=== PATIENT | male | born 1965 | race Caucasian/White ===

== ENCOUNTER 2019-03-21 18:05 | Inpatient (IN) | payer OTHER ==
--- NOTE | 2019-03-21 20:41 | PDOC ---
*Physical Exam - Vital Signs Last Vital Signs Temp Pulse Resp BP Pulse Ox 98.3 F 89 17 172/93 H 97 03/21/19 18:07 03/21/19 18:07 03/21/19 18:07 03/21/19 18:07 03/21/19 18:07 ED Treatment Course - LABORATORY CBC & Chemistry Diagram: 03/21/19 21:23 03/21/19 21:23 Medical Decision Making - Medical Decision Making 03/21/19 20:40 Patient seen by the advanced practice provider under my direct supervision. Ancillary testing reviewed as necessary. I agree with plan as outlined by the advanced practice provider. *DC/Admit/Observation/Transfer Diagnosis at time of Disposition: Wound of foot - Referrals Referrals: Tk Hoang MD [Primary Care Provider] - - Patient Instructions - Post Discharge Activity
[2019-03-21] MEDS ORDERED: SODIUM CHLORIDE 1,000 ML IV STA (21:13)
[2019-03-21] MEDS ORDERED: VANCOMYCIN 1 GM in D5W (PRE-DOCKED) 1,000 MG/250 ML IVPB ONE (21:13)
[2019-03-21] MEDS ORDERED: PIPERACILLIN/TAZOB 3.375 GM 3.375 GM in DEXTROSE 5%-WATER - 50 ML IVPB ONE (21:13)
--- NOTE | 2019-03-21 21:13 | PDOC ---
History of Present Illness - General Chief Complaint: Wound Stated Complaint: SEND BY DOCTOR Time Seen by Provider: 03/21/19 20:37 Past History - Travel Traveled outside of the country in the last 30 days: No Close contact w/someone who was outside of country & ill: No - Past Medical History Allergies/Adverse Reactions: Allergies Allergy/AdvReac Type Severity Reaction Status Date / Time No Known Allergies Allergy Verified 03/21/19 18:09 Home Medications: Ambulatory Orders Amlodipine Besylate/Valsartan [Amlodipine-Valsartan 5-160 mg] 1 each PO DAILY Bupropion HCl [Bupropion Xl] 150 mg PO DAILY 03/21/19 Empagliflozin [Jardiance] 10 mg PO DAILY 03/21/19 Insulin Degludec [Tresiba] 100 unit SQ DAILY 03/21/19 Propranolol HCl [Propranolol HCl ER] 60 mg PO DAILY 03/21/19 Sitagliptin Phos/Metformin HCl [Janumet 50-1,000 mg Tablet] 1 each PO BID Topiramate [Topiramate ER] 150 mg PO DAILY 03/21/19 Zolmitriptan [Zomig Zmt] 5 mg PO PRN 03/21/19 COPD: No Diabetes: Yes HTN: Yes - Suicide/Smoking/Psychosocial Hx Smoking History: Never smoked Information on smoking cessation initiated: No Hx Alcohol Use: No Drug/Substance Use Hx: No Review of Systems - Review of Systems Able to Perform ROS?: Yes Comments:: 03/21/19 22:28 CONSTITUTIONAL: Absent: fever, chills, diaphoresis, generalized weakness, malaise, loss of appetite HEENT: Absent: rhinorrhea, nasal congestion, throat pain, throat swelling, difficulty swallowing, mouth swelling, ear pain, eye pain, visual Changes CARDIOVASCULAR: Absent: chest pain, loss of consciousness, palpitations, irregular heart rate, peripheral edema RESPIRATORY: Absent: cough, shortness of breath, dyspnea with exertion, orthopnea, wheezing, stridor, hemoptysis GASTROINTESTINAL: Absent: abdominal pain, abdominal distension, nausea, vomiting, diarrhea, constipation, melena, hematochezia GENITOURINARY: Absent: dysuria, frequency, urgency, hesitancy, hematuria, flank pain, genital pain MUSCULOSKELETAL: Absent: myalgia, arthralgia, joint swelling SKIN: Present: "toe infection" Absent: itching, pallor HEMATOLOGIC/IMMUNOLOGIC: Absent: easy bleeding, easy bruising, lymphadenopathy, frequent infections ENDOCRINE: Absent: unexplained weight gain, unexplained weight loss, heat intolerance, cold intolerance NEUROLOGIC: Absent: headache, focal weakness or paresthesias, dizziness, unsteady gait, seizure, mental status changes, bladder or bowel incontinence PSYCHIATRIC: Absent: anxiety, depression, suicidal or homicidal ideation, hallucinations. Is the patient limited Hungarian proficient: No *Physical Exam - Vital Signs Last Vital Signs Temp Pulse Resp BP Pulse Ox 98.3 F 89 17 172/93 H 97 03/21/19 18:07 03/21/19 18:07 03/21/19 18:07 03/21/19 18:07 03/21/19 18:07 - Physical Exam Comments: 03/21/19 22:32 GENERAL: Well developed, well nourished. Awake and alert. No acute distress. HEENT: Normocephalic, atraumatic. PERRLA, EOMI. No conjunctival pallor. Sclera are non- icteric. Moist mucous membranes. Oropharynx is clear. NECK: Supple. Full ROM. No JVD. Carotid pulses 2+ and symmetric, without bruits. No thyromegaly. No lymphadenopathy. CARDIOVASCULAR: Regular rate and rhythm. No murmurs, rubs, or gallops. Distal pulses are 2+ and symmetric. PULMONARY: No evidence of respiratory distress. Lungs clear to auscultation bilaterally. No wheezing, rales or rhonchi. ABDOMINAL: Soft. Non-tender. Non-distended. No rebound or guarding. No organomegaly. Normoactive bowel sounds. MUSCULOSKELETAL Normal range of motion at all joints. No bony deformities or tenderness. No CVA tenderness. EXTREMITIES: No cyanosis. No clubbing. No edema. No calf tenderness. SKIN: B/L stage II pressure ulcers to the top of the second toes approximately 0.5cm in size with associated non-circumferential cellulitis. Warm and dry. Normal capillary refill. No jaundice. NEUROLOGICAL: Alert, awake, appropriate. Cranial nerves 2-12 intact. No deficits to light touch and temperature in face, upper extremities and lower extremities. No motor deficits in the in face, upper extremities and lower extremities. Normoreflexic in the upper and lower extremities. Normal speech. Toes are down- going bilaterally. Gait is normal without ataxia. PSYCHIATRIC: Cooperative. Good eye contact. Appropriate mood and affect. ED Treatment Course - LABORATORY CBC & Chemistry Diagram: 03/21/19 21:23 03/21/19 21:23 Medical Decision Making - Medical Decision Making 03/21/19 22:33 The patient is a 53-year-old male with past medical history of NIDDM, hypertension, who presents to the emergency department today for evaluation of wounds to his feet bilaterally. Patient states he was evaluated by his diagnostic technologist today who recommended he come for admission and IV antibiotics.Patient states that the wound started 2 days ago after his right new socks and shoes. He states that the socks are very tight and rubbing against the top of his feet. He tried keeping them clean at home with antibiotic ointment and hydrogen peroxide however it still came infected. Denies pain to the site, fevers, chills, numbness and tingling and weakness to the affected extremities. A/P: Infected diabetic foot ulcer On exam patient with 20.5 cm round ulcerations the top of his left second toes bilaterally. 1 culture collected Blood cultures drawn Lab work shows normal the WBC count Vancomycin and Zosyn ordered after blood cultures. X-rays EKG and feet x-rays ordered to rule out osteo. Will admit patient for further evaluation and IV antibiotics. 03/22/19 00:[address] Jules PGY-2, Dr. Kirk is the attending for the night. Pt to go to Med/surg *DC/Admit/Observation/Transfer Diagnosis at time of Disposition: Foot ulcer Qualifiers: Laterality: left Non-pressure ulcer stage: with fat layer exposed Qualified Code(s): L97.522 - Non-pressure chronic ulcer of other part of left foot with fat layer exposed Cellulitis Qualifiers: Site of cellulitis: extremity Site of cellulitis of extremity: toe Laterality: unspecified laterality Qualified Code(s): L03.039 - Cellulitis of unspecified toe - Discharge Dispostion Disposition: HOME Condition at time of disposition: Stable Decision to Admit order: Yes - Referrals Referrals: Tk Hoang MD [Primary Care Provider] - - Patient Instructions - Post Discharge Activity
[2019-03-21] MEDS ORDERED: PIPERACILLIN/TAZOB 3.375 GM 3.375 GM/50 ML BAG IVPB ONE (21:42)
[2019-03-21 21:49] LABS: BASO % 0.2 % (0-2.0); EOS % 1.2 % (0-4.5); HEMATOCRIT 50.8 % (35.4-49); HEMOGLOBIN 16.7 GM/dL (11.7-16.9); LYMPH % 22.9 % (8-40); MCH 28.2 pg (25.7-33.7); MCHC 32.9 g/dl (32.0-35.9); MEAN CELL VOLUME 85.7 fl (80-96); MONO % 6.8 % (3.8-10.2); NEUT % 68.9 % (42.8-82.8); PLATELET COUNT 217 K/MM3 (134-434); RBC 5.93 M/mm3 (4.00-5.60); WHITE BLOOD COUNT 8.5 K/mm3 (4.0-10.0)
[2019-03-21] MEDS ORDERED: VANCOMYCIN 1 GRAM (PRE-DOCKED) 1,000 MG/250 ML BAG IVPB ONE (22:14)
[2019-03-21 22:20] LABS: ALBUMIN 4.3 g/dl (3.4-5.0); ALK PHOS 84 U/L (45-117); ANION GAP 7 MMOL/L (8-16); BILIRUBIN,TOTAL 0.4 mg/dL (0.2-1); BLOOD UREA NITROGEN 27 mg/dL (7-18); CALCIUM 9.6 mg/dL (8.5-10.1); CHLORIDE 105 mmol/L (98-107); CO2 26 mmol/L (21-32); CREATININE 1.3 mg/dL (0.55-1.3); GLUCOSE,RANDOM 136 mg/dL (74-106); POTASSIUM 4.6 mmol/L (3.5-5.1); SGOT/AST 11 U/L (15-37); SGPT/ALT 20 U/L (13-61); SODIUM 138 mmol/L (136-145); TOT PROT 8.6 g/dl (6.4-8.2)
--- NOTE | 2019-03-22 01:17 | HP ---
CHIEF COMPLAINT: diabetic foot ulcers x 2 PCP: HISTORY OF PRESENT ILLNESS: 53 y/o M with hx NIDDM, HTN, migraines (has seen Dr. Bowman for previously), who presents to the ED c/o diabetic foot ulcers on both of his second toes over the past 4-5 days. As per pt, 4-5 days ago, he noticed erythema on the anterior aspect of both of his second toes. At first, he attributed this to his work, as he is on his feet for 8-12 hours a day. [place] at an [place]. However, a day later, he noticed that scabs were forming on both anterior aspects. He rubbed the area, and tried to change his shoes and socks to see if it his sx were alleviated. However they worsened. For the next two days, he also noticed edema in both regions, and last night he woke up to find that the ulcer on his L foot had burst, w/ serous drainage. No bloodly or foul-smelling d/c. For this reason , he became concerned and went to urgent care today for further evaluation. While there, he was recommended to see a qa software test engineer, who recommended he come to the hospital for admission and IV antibiotics. During this time, pt denies EDGE, fever, chills, SOB, chest pain or pressure, or changes in urinary or bowel function. Has never had diabetic foot ulcers in the past. BG at home mostly controlled, with levels ranging 120-130's. His last A1c was 7%. States that he recently had his blood checked again to see his latest level. Follows with Dr. Boothe. 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 Smoking: in past. 1 ppd x few yrs. quit 8 yrs ago Alcohol: socially Drugs: denies Family History: younger brother- "cardiac surgery," IDDM with foot amputation - other brother Allergies No Known Allergies Allergy (Verified 03/21/19 18:09) HOME MEDICATIONS: Home Medications Medication Instructions Recorded Amlodipine Besylate/Valsartan 1 each PO DAILY 03/21/19 [Amlodipine-Valsartan 5-160 mg] Bupropion HCl [Bupropion Xl] 150 mg PO DAILY 03/21/19 Empagliflozin [Jardiance] 10 mg PO DAILY 03/21/19 Insulin Degludec [Tresiba] 100 unit SQ DAILY 03/21/19 Propranolol HCl [Propranolol HCl 60 mg PO DAILY 03/21/19 ER] Sitagliptin Phos/Metformin HCl 1 each PO BID 03/21/19 [Janumet 50-1,000 mg Tablet] Topiramate [Topiramate ER] 150 mg PO DAILY 03/21/19 Zolmitriptan [Zomig Zmt] 5 mg PO PRN 03/21/19 REVIEW OF SYSTEMS CONSTITUTIONAL: Absent: fever, chills, diaphoresis, generalized weakness, malaise, loss of appetite, weight change HEENT: Absent: rhinorrhea, nasal congestion, throat pain, throat swelling, difficulty swallowing, mouth swelling, ear pain, eye pain, visual changes CARDIOVASCULAR: Absent: chest pain, syncope, palpitations, irregular heart rate, lightheadedness , peripheral edema RESPIRATORY: Absent: cough, shortness of breath, dyspnea with exertion, orthopnea, wheezing, stridor, hemoptysis GASTROINTESTINAL: Absent: abdominal pain, abdominal distension, nausea, vomiting, diarrhea, constipation, melena, hematochezia GENITOURINARY: Absent: dysuria, frequency, urgency, hesitancy, hematuria, flank pain, genital pain MUSCULOSKELETAL: Absent: myalgia, arthralgia, joint swelling, back pain, neck pain SKIN: +foot ulcers Absent: rash, itching, pallor HEMATOLOGIC/IMMUNOLOGIC: Absent: easy bleeding, easy bruising, lymphadenopathy, frequent infections ENDOCRINE: Absent: unexplained weight gain, unexplained weight loss, heat intolerance, cold intolerance NEUROLOGIC: Absent: headache, focal weakness or paresthesias, dizziness, unsteady gait, seizure, mental status changes, bladder or bowel incontinence PSYCHIATRIC: Absent: anxiety, depression, suicidal or homicidal ideation, hallucinations. PHYSICAL EXAMINATION Vital Signs - 24 hr 03/21/19 03/21/19 18:07 21:34 Temperature 98.3 F 97.6 F Pulse Rate 89 Pulse Rate [ 88 Left] Respiratory 17 24 H Rate Blood Pressure 172/93 H Blood Pressure 129/85 [Left] O2 Sat by Pulse 97 Oximetry (%) GENERAL: Pleasant. Awake, alert, and fully oriented, in no acute distress. HEAD: Normal with no signs of trauma. EYES: Pupils equal, round and reactive to light, extraocular movements intact, sclera anicteric, conjunctiva clear. EARS, NOSE, THROAT: Ears normal, nares patent, oropharynx clear without exudates. Moist mucous membranes. NECK: Normal range of motion, supple LUNGS: Breath sounds equal, clear to auscultation bilaterally. No wheezes, and no crackles. No accessory muscle use. HEART: Regular rate and rhythm, normal S1 and S2 without murmur, rub or gallop. ABDOMEN: Soft, obese, nontender, not distended, normoactive bowel sounds, no guarding, no rebound, no masses. MUSCULOSKELETAL: Normal range of motion at all joints. No bony deformities or tenderness. No CVA tenderness. LOWER EXTREMITIES: 2+ pt pulses, warm, well-perfused. No calf tenderness. + stage 1-2 foot ulcers on L and R 2nd toe b/l. with scabbing, surrounding erythema. no active drainage. not foul smelling. NEUROLOGICAL: Cranial nerves II-XII intact. Normal speech. Normal gait. PSYCHIATRIC: Cooperative. Good eye contact. SKIN: Warm, dry, normal turgor Laboratory Results - last 24 hr 03/21/19 03/21/19 21:23 21:23 WBC 8.5 RBC 5.93 H Hgb 16.7 Hct 50.8 H MCV 85.7 MCH 28.2 MCHC 32.9 RDW 15.0 Plt Count 217 MPV 8.0 Absolute Neuts (auto) 5.8 Neutrophils % 68.9 Lymphocytes % 22.9 Monocytes % 6.8 Eosinophils % 1.2 Basophils % 0.2 Nucleated RBC % 0 Sodium 138 Potassium 4.6 Chloride 105 Carbon Dioxide 26 Anion Gap 7 L BUN 27 H Creatinine 1.3 Creat Clearance w eGFR 57.97 Random Glucose 136 H Calcium 9.6 Total Bilirubin 0.4 AST 11 L ALT 20 Alkaline Phosphatase 84 Total Protein 8.6 H Albumin 4.3 CXR: without acute dz. f/u official report b/l foot XR: without evidence of acute dz, or gas on my examination. no foreign bodies. however f/u official report ASSESSMENT/PLAN: 53 y/o M with hx NIDDM, HTN, migraines (has seen Dr. Bowman for previously), who presents to the ED c/o diabetic foot ulcers on both of his second toes over the past 4-5 days. #B/l 2nd toe diabetic foot ulcers -without fever or leukocytosis. appear superficial, stage 1-2 . -s/p vanc, zosyn in ED. c/w vanc, zosyn 3.375g q8h -f/u ESR, CRP -lower suspicion at this time for osteo. will not MRI -f/u blood cx, L wound cx. R was unable to be obtained by staff d/t lack of drainage -ID consult: Dr. Romero #NIDDM -last A1c 7% as per pt. follows with Dr. Boothe -f/u current A1c. ordered -ISS, BGM ACHS -hold home antiglycemics #possible SERENE -do not know baseline Cr. will need to obtain -encourage PO intake #HTN- controlled -c/w amlo-valsartan, propranolol #migraines -c/w topiramate, propranolol #F/E/N no need for IVF at this time continue to follow lytes na controlled/diabetic diet #ppx Hep 5k sq tid #Dispo admit to med-surg Visit type - Emergency Visit Emergency Visit: Yes ED Registration Date: 03/22/19 Care time: The patient presented to the Emergency Department on the above date and was hospitalized for further evaluation of their emergent condition. - New Patient This patient is new to me today: Yes Date on this admission: 03/22/19 - Critical Care Critical Care patient: No
--- NOTE | 2019-03-22 02:09 | PN ---
Teaching Attending Note Name of Resident: Genna Jules ATTENDING PHYSICIAN STATEMENT I saw and evaluated the patient. I reviewed the resident's note and discussed the case with the resident. I agree with the resident's findings and plan as documented. SUBJECTIVE: Patient is a 53 year old man with PMH of NIDDM and hypertension, who presents to the ER for evaluation of wounds to his feet bilaterally. Patient states he was evaluated by his reporting analyst today who recommended he come for admission and IV antibiotics.Patient states that the wound started 2 days ago after his right new socks and shoes. He states that the socks are very tight and rubbing against the top of his feet. He tried keeping them clean at home with antibiotic ointment and hydrogen peroxide however it still came infected. Denies pain to the site, fevers, chills, numbness and tingling and weakness to the affected extremities. OBJECTIVE: Alert Vital Signs Period Temp Pulse Resp BP Sys/Pettit Pulse Ox Last 24 Hr 97.6 F-98.3 F 88-89 17-24 129-172/85-93 97 HEENT: No Jaundice, eye redness or discharge, PERRLA, EOMI. Normocephalic, atraumatic. External ears are normal and hearing is grossly intact. No nasal discharge. Neck: Supple, nontender. No palpable adenopathy or thyromegaly. No JVD Chest: Good effort. Clear to auscultation and percussion. Heart: Regular. No S3, rub or murmur Abdomen: Not distended, soft, nontender and no HSM. No rebound or guarding. Normal bowel sounds. Ext: Peripheral pulses intact. No leg edema. Ulcers on the dorsum of Left and Right second toes. No purulent discharge. Skin: Warm and dry. No petechiae, rash or ecchymosis. Neuro: Alert. Oriented x3. CN 2-12 grossly intact. Sensation grossly intact in all four extremities and DTR are symmetric. Psych: Appropriate mood and affect. Good insight. Current Medications Generic Name Dose Route Start Last Admin Trade Name Freq PRN Reason Stop Dose Admin Amlodipine Besylate 5 mg 03/22/19 10:00 Norvasc - PO DAILY [facility] Bupropion HCl 150 mg 03/22/19 10:00 Wellbutrin Xl - PO DAILY [facility] Heparin Sodium (Porcine) 5,000 unit 03/22/19 06:00 Heparin - SQ TID [facility] Piperacillin Sod/Tazobactam 50 mls @ 100 mls/hr 03/22/19 05:00 Sod 3.375 gm/ Dextrose IVPB Q8H-IV [facility] Protocol Vancomycin HCl 1,500 mg/ 500 mls @ 250 mls/hr 03/22/19 21:00 Dextrose IVPB 03/22/19 22:59 DAILY ONE Piperacillin Sod/Tazobactam 50 mls @ 100 mls/hr 03/22/19 02:00 Sod 3.375 gm/ Dextrose IVPB 03/23/19 01:59 Q8H-IV [facility] Insulin Aspart 1 vial 03/22/19 07:00 Novolog Vial Sliding Scale - SQ ACHS [facility] Protocol Non-Formulary Medication 150 mg 03/22/19 10:00 Topiramate [Topiramate Er] PO DAILY [facility] Propranolol HCl 60 mg 03/22/19 10:00 Inderal La - PO DAILY [facility] Valsartan 160 mg 03/22/19 10:00 Diovan - PO DAILY [facility] Home Medications Medication Instructions Recorded Amlodipine Besylate/Valsartan 1 each PO DAILY 03/21/19 [Amlodipine-Valsartan 5-160 mg] Bupropion HCl [Bupropion Xl] 150 mg PO DAILY 03/21/19 Empagliflozin [Jardiance] 10 mg PO DAILY 03/21/19 Insulin Degludec [Tresiba] 100 unit SQ DAILY 03/21/19 Propranolol HCl [Propranolol HCl 60 mg PO DAILY 03/21/19 ER] Sitagliptin Phos/Metformin HCl 1 each PO BID 03/21/19 [Janumet 50-1,000 mg Tablet] Topiramate [Topiramate ER] 150 mg PO DAILY 03/21/19 Zolmitriptan [Zomig Zmt] 5 mg PO PRN 03/21/19 Abnormal Lab Results 03/21/19 03/21/19 21:23 21:23 RBC 5.93 H Hct 50.8 H Anion Gap 7 L BUN 27 H Random Glucose 136 H AST 11 L Total Protein 8.6 H ASSESSMENT AND PLAN: 1. Infected diabetic foot ulcers - Foot xrays reveal no gas collection. Being treated with IV Vancomycin and Zosyn pending wound cultures. Continue daily wound care and patient counseled about avoiding tight footwear. Consult podiatry. Erythrocytosis may be due to infection and dehydration. Getting IV NS. 2. DM For now, we will hold the home diabetes drugs and implement sliding scale insulin regimen. Provide comprehensive diabetes care with patient teaching and counseling about the importance of adherence to prescribed diabetes regimen, euglycemia, eye care and foot care. 3. Obesity Counseled on the risks associated with obesity. Will provide patient all the necessary assistance, counseling and positive reinforcement to facilitate weight loss. Consult branch associate. 4. Hypertension - Restart outpatient antihypertensive drugs and revise regimen to ensure smooth [id number] good BP control. Nonpharmacologic measures to control hypertension like weight loss, salt restriction and exercise discussed. 5. DVT prophylaxis - Lovenox 40 mg SQ q 24 hours. 6. Advance directives - Full code
[2019-03-22] MEDS ORDERED: PIPERACILLIN/TAZOB 3.375 GM 3.375 GM/50 ML BAG IVPB ONE (02:17)
[2019-03-22] MEDS: PIPERACILLIN/TAZOB 3.375 GM 3.375 GM in DEXTROSE 5%-WATER - 50 ML IVPB SCH ×2 (02:27→09:49)
[2019-03-22 03:57] VITALS: BMI 33.6
[2019-03-22] MEDS ORDERED: PIPERACILLIN/TAZOB 3.375 GM 3.375 GM in DEXTROSE 5%-WATER - 50 ML IVPB SCH (05:00)
[2019-03-22] MEDS: INSULIN SLIDING SCALE (NOVOLOG) 1 VIAL SQ SCH ×4 (06:12→22:22)
[2019-03-22] MEDS: HEPARIN NA (PORCINE) 5,000 UNITS/ML 1ML VIAL SQ SCH ×3 (06:12→22:22)
[2019-03-22 08:11] LABS: BASO % 0.2 % (0-2.0); EOS % 1.3 % (0-4.5); HEMOGLOBIN 15.1 GM/dL (11.7-16.9); LYMPH % 25.5 % (8-40); MCH 28.3 pg (25.7-33.7); MCHC 33.6 g/dl (32.0-35.9); MEAN CELL VOLUME 84.1 fl (80-96); MEAN PLT VOLUME 7.9 fl (7.5-11.1); MONO % 6.6 % (3.8-10.2); NEUT % 66.4 % (42.8-82.8); PLATELET COUNT 159 K/MM3 (134-434); RBC 5.35 M/mm3 (4.00-5.60); RDW 14.9 % (11.9-15.9); WHITE BLOOD COUNT 6.4 K/mm3 (4.0-10.0)
[2019-03-22 08:33] LABS: ANION GAP 8 MMOL/L (8-16); BLOOD UREA NITROGEN 25 mg/dL (7-18); CHLORIDE 112 mmol/L (98-107); CO2 21 mmol/L (21-32); GLUCOSE,RANDOM 108 mg/dL (74-106); PHOSPHOROUS 3.9 mg/dL (2.5-4.9); POTASSIUM 3.9 mmol/L (3.5-5.1); SODIUM 140 mmol/L (136-145)
[2019-03-22] MEDS ORDERED: PIPERACILLIN/TAZOBACTAM 3.375 GM VIAL IVPB ONE (09:02)
[2019-03-22] MEDS ORDERED: DEXTROSE 5%-WATER - 50 ML IVPB ONE (09:02)
[2019-03-22] MEDS: amLODIPine BESYLATE 5 MG TABLET (FP) PO SCH (09:48)
[2019-03-22] MEDS: VALSARTAN 160 MG TABLET (UD) PO SCH (09:48)
[2019-03-22] MEDS ORDERED: TOPIRAMATE 150 MG PO SCH (10:00)
[2019-03-22] MEDS ORDERED: PATIENT'S OWN MEDICATION (NON-FORMULARY) (Amlodipine Besylate/Valsartan [Amlodipine-Valsar PO SCH (10:00)
--- NOTE | 2019-03-22 12:08 | EKG ---
Test Reason : Blood Pressure : / mmHG Vent. Rate : 087 BPM Atrial Rate : 087 BPM P-R Int : 160 ms QRS Dur : 094 ms QT Int : 354 ms P-R-T Axes : 048 -09 029 degrees QTc Int : 425 ms NORMAL SINUS RHYTHM POSSIBLE LEFT ATRIAL ENLARGEMENT LEFT VENTRICULAR HYPERTROPHY ABNORMAL ECG NO PREVIOUS ECGS AVAILABLE Confirmed by NAEEM RODRIGUEZ MD ([id number]) on 03/22/2019 12:08:27 PM Referred By: Confirmed By:NAEEM RODRIGUEZ MD
--- NOTE | 2019-03-22 12:16 | PN ---
Progress Note (short form) - Note Progress Note: ID CONSULT DICTATED CELLULITIS/ SUPERFICIAL ULCERS 2ND TOES B/L DM AWAIT C/S EMPIRIC CEFAZOLIN MRSA SCREEN
--- NOTE | 2019-03-22 13:08 | PN ---
Teaching Attending Note Name of Resident: Claudia Villar ATTENDING PHYSICIAN STATEMENT I saw and evaluated the patient. I reviewed the resident's note and discussed the case with the resident. I agree with the resident's findings and plan as documented. SUBJECTIVE: Patient has no complaints. OBJECTIVE: Vital Signs Period Temp Pulse Resp BP Sys/Epttit Pulse Ox Last 24 Hr 97.6 F-98.5 F 83-91 17-24 126-172/76-93 97-97 HEART: S1S2, RRR LUNGS: Clear ABDOMEN: Obese, soft, non-tender, non-distended, normal BS EXTREMITIES: No edema. Superficial ulcers with surrounding erythema and no drainage overlying PIP joints of bilateral 2nd toes Laboratory Results - last 24 hr 03/21/19 03/21/19 03/22/19 21:23 21:23 02:39 WBC 8.5 RBC 5.93 H Hgb 16.7 Hct 50.8 H MCV 85.7 MCH 28.2 MCHC 32.9 RDW 15.0 Plt Count 217 MPV 8.0 Absolute Neuts (auto) 5.8 Neutrophils % 68.9 Lymphocytes % 22.9 Monocytes % 6.8 Eosinophils % 1.2 Basophils % 0.2 Nucleated RBC % 0 ESR Sodium 138 Potassium 4.6 Chloride 105 Carbon Dioxide 26 Anion Gap 7 L BUN 27 H Creatinine 1.3 Creat Clearance w eGFR 57.97 POC Glucometer 131 Random Glucose 136 H Hemoglobin A1c % Calcium 9.6 Phosphorus Magnesium Total Bilirubin 0.4 AST 11 L ALT 20 Alkaline Phosphatase 84 C-Reactive Protein Total Protein 8.6 H Albumin 4.3 03/22/19 03/22/19 03/22/19 06:09 07:10 07:10 WBC RBC Hgb Hct MCV MCH MCHC RDW Plt Count MPV Absolute Neuts (auto) Neutrophils % Lymphocytes % Monocytes % Eosinophils % Basophils % Nucleated RBC % ESR 4 Sodium Potassium Chloride Carbon Dioxide Anion Gap BUN Creatinine Creat Clearance w eGFR POC Glucometer 111 Random Glucose Hemoglobin A1c % Calcium Phosphorus Magnesium Total Bilirubin AST ALT Alkaline Phosphatase C-Reactive Protein < 0.3 Total Protein Albumin 03/22/19 03/22/19 03/22/19 07:10 07:10 07:10 WBC 6.4 RBC 5.35 Hgb 15.1 Hct 45.0 MCV 84.1 MCH 28.3 MCHC 33.6 RDW 14.9 Plt Count 159 D MPV 7.9 Absolute Neuts (auto) 4.3 Neutrophils % 66.4 Lymphocytes % 25.5 Monocytes % 6.6 Eosinophils % 1.3 Basophils % 0.2 Nucleated RBC % 0 ESR Sodium 140 Potassium 3.9 Chloride 112 H Carbon Dioxide 21 Anion Gap 8 BUN 25 H Creatinine 1.0 Creat Clearance w eGFR 78.47 POC Glucometer Random Glucose 108 H Hemoglobin A1c % 8.0 H Calcium 8.0 L Phosphorus 3.9 Magnesium 2.0 Total Bilirubin AST ALT Alkaline Phosphatase C-Reactive Protein Total Protein Albumin 03/22/19 11:08 WBC RBC Hgb Hct MCV MCH MCHC RDW Plt Count MPV Absolute Neuts (auto) Neutrophils % Lymphocytes % Monocytes % Eosinophils % Basophils % Nucleated RBC % ESR Sodium Potassium Chloride Carbon Dioxide Anion Gap BUN Creatinine Creat Clearance w eGFR POC Glucometer 127 Random Glucose Hemoglobin A1c % Calcium Phosphorus Magnesium Total Bilirubin AST ALT Alkaline Phosphatase C-Reactive Protein Total Protein Albumin Current Medications Generic Name Dose Route Start Last Admin Trade Name Freq PRN Reason Stop Dose Admin Amlodipine Besylate 5 mg 03/22/19 10:00 03/22/19 09:48 Norvasc - PO 5 mg DAILY [facility] Administration Bupropion HCl 150 mg 03/22/19 10:00 03/22/19 09:48 Wellbutrin Xl - PO 150 mg DAILY [facility] Administration Heparin Sodium (Porcine) 5,000 unit 03/22/19 06:00 03/22/19 06:12 Heparin - SQ 5,000 unit TID [facility] Administration Vancomycin HCl 1,500 mg/ 500 mls @ 250 mls/hr 03/22/19 21:00 Dextrose IVPB 03/22/19 22:59 DAILY ONE Cefazolin Sodium/Dextrose 2 gm in 50 mls @ 100 mls/hr 03/22/19 12:15 Ancef 2 Gm Premixed Ivpb - IVPB Q8H-IV [facility] Insulin Aspart 1 vial 03/22/19 07:00 03/22/19 11:28 Novolog Vial Sliding Scale - SQ Not Given ACHS [facility] Protocol Non-Formulary Medication 150 mg 03/22/19 10:00 Topiramate [Topiramate Er] PO DAILY [facility] Propranolol HCl 60 mg 03/22/19 10:00 03/22/19 10:26 Inderal La - PO 60 mg DAILY [facility] Administration Valsartan 160 mg 03/22/19 10:00 03/22/19 09:48 Diovan - PO 160 mg DAILY [facility] Administration ASSESSMENT AND PLAN: This is a 53 year old man with a history of type 2 DM, HTN, migraines who presented to the ED with painful ulcers and redness of both 2nd toes. 1. Cellulitis and superficial ulcers of both 2nd toes - Continue Ancef, vancomycin - ESR 4, C-RP <0.3 - Wound culture pending - Podiatry consult 2. HTN - Continue Norvasc, Diovan, Inderal LA 3. Type 2 DM - Hold Sara Andrade Janumet - Continue Novolog sliding scale 4. History of migraine headaches - Continue Topamax, Inderal LA
--- NOTE | 2019-03-22 14:07 | CONS ---
INFECTIOUS DISEASE CONSULTATION DATE OF CONSULTATION: DATE OF DICTATION: 03/22/2019 HISTORY OF PRESENT ILLNESS: The patient is a 53-year-old, diabetic male who is evaluated for bilateral diabetic foot infections. The patient works at [employer]. He reports developing blisters on the dorsal aspect of both second toes on or around March 17. He states that he had been wearing tight socks. He had developed blisters on the dorsal aspect of both second toes. He treated them topically with hydrogen peroxide and triple antibiotic ointment. Approximately 1 day prior to admission, he had noted clear drainage from the blisters. 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 On admission, the patient was found to have cellulitis of both second toes with a superficial ulceration. He was empirically treated with vancomycin and Zosyn. He denies any traumatic injury. Denies prior history of diabetic foot infection. No history of serious soft tissue infection requiring hospitalization. Denies history of MRSA. He has had no hospitalizations here or elsewhere recently. PAST MEDICAL HISTORY: Positive for diabetes mellitus. He has been diabetic for many years. He denies history of insulin usage. Past medical history also includes hypertension and migraine headache. ALLERGIES: No known allergies. MEDICATIONS: At the present time include amlodipine, Wellbutrin, propranolol, Diovan, vancomycin, Zosyn. SOCIAL HISTORY: He resides in the community. He is a nonsmoker. SYSTEMS REVIEW: Neurologic: No loss of consciousness, seizure activity, focal weakness. Cardiac: Negative chest pain or palpitations. Respiratory: Negative cough or sputum production. Gastrointestinal: Negative vomiting or diarrhea. Genitourinary: Negative for urinary tract infection. LABORATORY DATA: White count 6.4, hematocrit 45.0, platelet count 159. ESR 4, C-reactive protein less than 0.3. BUN 25, creatinine 1.0. IMAGING: X-rays of the feet negative for fracture, dislocation or osteomyelitis. PHYSICAL EXAMINATION: General: On physical examination, he is awake and alert. He is not acutely toxic appearing. Vital Signs: Temperature 98.5, blood pressure 131/77, pulse 83 regular, respirations 18 per minute. Eyes: Sclerae are anicteric. Heart: Heart sounds S1, S2. Lungs: Clear. Lower extremities: There are small, superficial ulcerations present over the dorsal aspect of both second toes approximately 0.5 cm in diameter. There is a larger area of erythema approximately 2 cm surrounding the superficial ulcerations. They are nontender. No purulent drainage is noted. No crepitance, fluctuance or lymphangitic streaking. IMPRESSION: 1. Cellulitis/superficial ulcerations of second toes bilaterally. 2. Diabetes mellitus. PLAN: Await culture results. Will do a nares swab for MRSA. Empiric antibiotic coverage with cefazolin 2 g IV piggyback every 8 hours in conjunction with local wound care. Podiatry followup. Will follow. Thank you for the kind referral. GHANSHYAM REYES M.D. ANGELA/[id number]
[2019-03-22] MEDS: CEFAZOLIN 2 GM/D5W 2 GM/50 ML ML IVPB SCH ×2 (14:31→17:52)
--- NOTE | 2019-03-22 15:34 | CONSULT ---
Consult Consult Specialty:: Podiatry Reason for Consultation:: wounds b/l 2nd toes - History of Present Illness Chief Complaint: wounds b/l 2nd toes - History Source History Provided By: Patient - Alcohol/Substance Use Hx Alcohol Use: No - Smoking History Smoking history: Never smoked Home Medications - Allergies Allergies/Adverse Reactions: Allergies Allergy/AdvReac Type Severity Reaction Status Date / Time No Known Allergies Allergy Verified 03/21/19 18:09 - Home Medications Home Medications: Ambulatory Orders Amlodipine Besylate/Valsartan [Amlodipine-Valsartan 5-160 mg] 1 each PO DAILY Bupropion HCl [Bupropion Xl] 150 mg PO DAILY 03/21/19 Empagliflozin [Jardiance] 10 mg PO DAILY 03/21/19 Insulin Degludec [Tresiba] 100 unit SQ DAILY 03/21/19 Propranolol HCl [Propranolol HCl ER] 60 mg PO DAILY 03/21/19 Sitagliptin Phos/Metformin HCl [Janumet 50-1,000 mg Tablet] 1 each PO BID Topiramate [Topiramate ER] 150 mg PO DAILY 03/21/19 Zolmitriptan [Zomig Zmt] 5 mg PO PRN 03/21/19 Physical Exam Vital Signs: Vital Signs Temperature 97.9 F 03/22/19 14:00 Pulse Rate 84 03/22/19 14:00 Respiratory Rate 20 03/22/19 14:00 Blood Pressure 124/74 03/22/19 14:00 O2 Sat by Pulse Oximetry (%) 97 03/22/19 04:01 Extremities: Yes: Other (ulceration of proximal interphalangeal joints 2nd toes b/l grade 1-2, +moist with mild drainage, -mal odor, r/o om, +cellulitis b/l 2nd toes) Labs: CBC, BMP 03/22/19 07:10 03/22/19 07:10 Assessment/Plan om? cellulitis dm pvd? Santyl dressing change to both toes. Post op shoes to bedside. Vascular consult. ID on case. will follow.
--- NOTE | 2019-03-22 16:39 | PN ---
Physical Exam: SUBJECTIVE: Patient seen and examined this AM. No new complaints. Mentions this is the 1st this has ever happened to him. Denies any new shoes or recent trauma. Does not follow with podiatry outpatient. OBJECTIVE: Vital Signs Period Temp Pulse Resp BP Sys/Pettit Pulse Ox Last 24 Hr 97.6 F-98.5 F 83-91 17-24 124-172/74-93 97-97 GENERAL: A&Ox3, NAD HEAD: NCAT EYES: PERRL, EOMI ENT: moist mucous membranes. NECK: Supple LUNGS: Clear to auscultation bilaterally, no wheezes, no crackles HEART: Regular rate and rhythm, S1, S2 without murmur ABDOMEN: Obese, Soft, nontender, nondistended, +bowel sounds, no guarding EXTREMITIES: No edema. Stage 1 ulceration over the dorsal aspects of the 2nd digit b/l with overlying scab and surrounding erythema, no active drainage NEUROLOGICAL: Cranial nerves II through XII grossly intact. Gross sensation intact throughout. 5/5 muscle strength throughout SKIN: Warm, dry Laboratory Results - last 24 hr 03/21/19 03/21/19 03/22/19 21:23 21:23 02:39 WBC 8.5 RBC 5.93 H Hgb 16.7 Hct 50.8 H MCV 85.7 MCH 28.2 MCHC 32.9 RDW 15.0 Plt Count 217 MPV 8.0 Absolute Neuts (auto) 5.8 Neutrophils % 68.9 Lymphocytes % 22.9 Monocytes % 6.8 Eosinophils % 1.2 Basophils % 0.2 Nucleated RBC % 0 ESR Sodium 138 Potassium 4.6 Chloride 105 Carbon Dioxide 26 Anion Gap 7 L BUN 27 H Creatinine 1.3 Creat Clearance w eGFR 57.97 POC Glucometer 131 Random Glucose 136 H Hemoglobin A1c % Calcium 9.6 Phosphorus Magnesium Total Bilirubin 0.4 AST 11 L ALT 20 Alkaline Phosphatase 84 C-Reactive Protein Total Protein 8.6 H Albumin 4.3 03/22/19 03/22/19 03/22/19 06:09 07:10 07:10 WBC RBC Hgb Hct MCV MCH MCHC RDW Plt Count MPV Absolute Neuts (auto) Neutrophils % Lymphocytes % Monocytes % Eosinophils % Basophils % Nucleated RBC % ESR 4 Sodium Potassium Chloride Carbon Dioxide Anion Gap BUN Creatinine Creat Clearance w eGFR POC Glucometer 111 Random Glucose Hemoglobin A1c % Calcium Phosphorus Magnesium Total Bilirubin AST ALT Alkaline Phosphatase C-Reactive Protein < 0.3 Total Protein Albumin 03/22/19 03/22/19 03/22/19 07:10 07:10 07:10 WBC 6.4 RBC 5.35 Hgb 15.1 Hct 45.0 MCV 84.1 MCH 28.3 MCHC 33.6 RDW 14.9 Plt Count 159 D MPV 7.9 Absolute Neuts (auto) 4.3 Neutrophils % 66.4 Lymphocytes % 25.5 Monocytes % 6.6 Eosinophils % 1.3 Basophils % 0.2 Nucleated RBC % 0 ESR Sodium 140 Potassium 3.9 Chloride 112 H Carbon Dioxide 21 Anion Gap 8 BUN 25 H Creatinine 1.0 Creat Clearance w eGFR 78.47 POC Glucometer Random Glucose 108 H Hemoglobin A1c % 8.0 H Calcium 8.0 L Phosphorus 3.9 Magnesium 2.0 Total Bilirubin AST ALT Alkaline Phosphatase C-Reactive Protein Total Protein Albumin 03/22/19 11:08 WBC RBC Hgb Hct MCV MCH MCHC RDW Plt Count MPV Absolute Neuts (auto) Neutrophils % Lymphocytes % Monocytes % Eosinophils % Basophils % Nucleated RBC % ESR Sodium Potassium Chloride Carbon Dioxide Anion Gap BUN Creatinine Creat Clearance w eGFR POC Glucometer 127 Random Glucose Hemoglobin A1c % Calcium Phosphorus Magnesium Total Bilirubin AST ALT Alkaline Phosphatase C-Reactive Protein Total Protein Albumin Microbiology 03/21/19 21:23 Toe - Left Second Gram Stain - Final Active Medications Amlodipine Besylate (Norvasc -) 5 mg PO DAILY [facility] Last Admin: 03/22/19 09:48 Dose: 5 mg Bupropion HCl (Wellbutrin Xl -) 150 mg PO DAILY [facility] Last Admin: 03/22/19 09:48 Dose: 150 mg Collagenase (Santyl -) 1 applic TP DAILY [facility]; Protocol Heparin Sodium (Porcine) (Heparin -) 5,000 unit SQ TID [facility] Last Admin: 03/22/19 14:30 Dose: 5,000 unit Vancomycin HCl 1,500 mg/ (Dextrose) 500 mls @ 250 mls/hr IVPB DAILY ONE Stop: 03/22/19 22:59 Cefazolin Sodium/Dextrose (Ancef 2 Gm Premixed Ivpb -) 2 gm in 50 mls @ 100 mls /hr IVPB Q8H-IV [facility] Last Admin: 03/22/19 14:31 Dose: 100 mls/hr Insulin Aspart (Novolog Vial Sliding Scale -) 1 vial SQ ACHS [facility]; Protocol Last Admin: 03/22/19 11:28 Dose: Not Given Non-Formulary Medication (Topiramate [Topiramate Er]) 150 mg PO DAILY [facility] Propranolol HCl (Inderal La -) 60 mg PO DAILY [facility] Last Admin: 03/22/19 10:26 Dose: 60 mg Valsartan (Diovan -) 160 mg PO DAILY [facility] Last Admin: 03/22/19 09:48 Dose: 160 mg IMAGING: -CXR: 2 views of the chest have been submitted. There is an elevated right hemidiaphragm with minimal aeration and some questionable atelectasis at the medial right base. There is a normal mediastinum, sharp costophrenic angles and intact bones and soft tissues. -Left Foot XRay: 3 views of the left foot have been submitted. There is calcaneal spurring, bunion formation by the first MTP joint, arthritic changes in the other toes but no sign of fracture or subluxation no sign of blastic or lytic changes. -Right Foot XRay: Right foot reveal similar findings to the left. There is no sign of fracture or subluxation and no sign of blastic or lytic changes. There is bunion formation by the first MTP joint and other arthritic changes in the toes. A destructive process involving the second toe is not seen. -EKG: NSR, LVH, Possible LAE, VR 87, QTc 425 ASSESSMENT/PLAN: 53 y/o M with PMHx NIDDM, HTN, Migraines is admitted for tx of b/l diabetic foot ulcers. #Stage 1, 2nd digit diabetic foot ulcers -Remains without fever or leukocytosis; Low suspicion for Osteo given ESR and CRP WNL -Continue Vancomycin 1,500 mg Daily, Cefazolin 2Gm IV Q8H (ABx course started on 03/21) -Follow Cultures -ID (Dr. Romero) Consulted, Appreciate Rec's -Podiatry (Dr. Alcazar) consulted #NIDDM -A1c 8.0% -ISS, BGM [facility] #HTN, controlled -Continue Propranolol 60mg PO Daily, Valsartan 160mg PO Daily, Amlodipine 5mg PO Daily #Migraines -Continue Topiramate Er 150mg PO Daily, Propranolol #FEN -No standing fluids -Monitor Lytes -Sodium controlled, Diabetic diet #PPx -DVT: Heparin TID Visit type - Emergency Visit Emergency Visit: Yes ED Registration Date: 03/22/19 Care time: The patient presented to the Emergency Department on the above date and was hospitalized for further evaluation of their emergent condition. - New Patient This patient is new to me today: Yes Date on this admission: 03/22/19 - Critical Care Critical Care patient: No - Discharge Referral Referred to [facility] No
[2019-03-22] MEDS: COLLAGENASE CLOSTRIDIUM HIST. 30 GRAMS TUBE TP SCH (17:52)
[2019-03-22] MEDS ORDERED: VANCOMYCIN HCL 1,500 MG in DEXTROSE 5%-WATER - 500 ML IVPB ONE (21:00)
[2019-03-22] MEDS ORDERED: INSULIN (NOVOLOG) ASPART 100 UNITS/ML 10ML VIAL ONE (22:13)
[2019-03-23] MEDS: CEFAZOLIN 2 GM/D5W 2 GM/50 ML ML IVPB SCH ×2 (02:51→10:19)
[2019-03-23] MEDS: INSULIN SLIDING SCALE (NOVOLOG) 1 VIAL SQ SCH ×4 (06:22→21:01)
[2019-03-23] MEDS: HEPARIN NA (PORCINE) 5,000 UNITS/ML 1ML VIAL SQ SCH ×3 (06:30→21:02)
[2019-03-23 08:19] LABS: BASO % 0.3 % (0-2.0); HEMATOCRIT 46.1 % (35.4-49); HEMOGLOBIN 15.5 GM/dL (11.7-16.9); LYMPH % 26.8 % (8-40); MCH 28.4 pg (25.7-33.7); MCHC 33.5 g/dl (32.0-35.9); MEAN CELL VOLUME 84.8 fl (80-96); MEAN PLT VOLUME 7.9 fl (7.5-11.1); MONO % 6.4 % (3.8-10.2); NEUT % 65.5 % (42.8-82.8); PLATELET COUNT 160 K/MM3 (134-434); RBC 5.44 M/mm3 (4.00-5.60); RDW 14.7 % (11.9-15.9); WHITE BLOOD COUNT 5.5 K/mm3 (4.0-10.0)
[2019-03-23 08:34] LABS: ALBUMIN 3.5 g/dl (3.4-5.0); ALK PHOS 66 U/L (45-117); ANION GAP 8 MMOL/L (8-16); BILIRUBIN,TOTAL 0.5 mg/dL (0.2-1); BLOOD UREA NITROGEN 18 mg/dL (7-18); CALCIUM 8.7 mg/dL (8.5-10.1); CHLORIDE 108 mmol/L (98-107); CO2 22 mmol/L (21-32); GLUCOSE,RANDOM 100 mg/dL (74-106); MAGNESIUM 2.2 mg/dL (1.8-2.4); PHOSPHOROUS 3.3 mg/dL (2.5-4.9); POTASSIUM 4.4 mmol/L (3.5-5.1); SGOT/AST 8 U/L (15-37); SGPT/ALT 15 U/L (13-61); SODIUM 138 mmol/L (136-145); TOT PROT 7.2 g/dl (6.4-8.2)
[2019-03-23] MEDS ORDERED: ZOLMITRIPTAN 5 MG PO SCH (09:30)
[2019-03-23 10:14] LABS: URINE APPEARANCE CLOUDY; URINE BILIRUBIN NEGATIVE (NEGATIVE); URINE COLOR YELLOW; URINE GLUCOSE (UA) NEGATIVE (NEGATIVE); URINE KETONE NEGATIVE (NEGATIVE); URINE LEUK ESTERASE NEGATIVE (NEGATIVE); URINE NITRITE NEGATIVE (NEGATIVE); URINE PROTEIN NEGATIVE (NEGATIVE); URINE UROBILINOGEN 0.2 mg/dL (0.2-1.0)
[2019-03-23] MEDS ORDERED: PT OWN MED DRAWER 7, Y5N ONE (10:16)
[2019-03-23] MEDS: VALSARTAN 160 MG TABLET (UD) PO SCH (10:19)
[2019-03-23] MEDS: COLLAGENASE CLOSTRIDIUM HIST. 30 GRAMS TUBE TP SCH (10:20)
[2019-03-23] MEDS: amLODIPine BESYLATE 5 MG TABLET (FP) PO SCH (10:22)
--- NOTE | 2019-03-23 10:33 | PN ---
Progress Note (short form) - Note Progress Note: fuv b/l 2nd toes. vss, tmax 98.2 unimproved wounds since yesterday, wbc improved to 5.5 grade 1-2 wounds b/l 2nd toes MRI recommended to rule out om b/l. Post op shoe b/l. Vascular consult in place. Betadine dressing change b/l. ID on case.
--- NOTE | 2019-03-23 12:20 | PN ---
Progress Note, Physician History of Present Illness: AWAKE, ALERT IN BED NO C/O FOOT PAIN NO FEVER/ CHILLS AFEBRILE BC PENDING WOUND C/S PRELIM S. AUREUS, SCN - Current Medication List Current Medications: Active Medications Amlodipine Besylate (Norvasc -) 5 mg PO DAILY [facility] Last Admin: 03/23/19 10:22 Dose: 5 mg Bupropion HCl (Wellbutrin Xl -) 150 mg PO DAILY [facility] Last Admin: 03/23/19 10:19 Dose: 150 mg Heparin Sodium (Porcine) (Heparin -) 5,000 unit SQ TID [facility] Last Admin: 03/23/19 06:30 Dose: 5,000 unit Cefazolin Sodium/Dextrose (Ancef 2 Gm Premixed Ivpb -) 2 gm in 50 mls @ 100 mls /hr IVPB Q8H-IV [facility] Last Admin: 03/23/19 10:19 Dose: 100 mls/hr Insulin Aspart (Novolog Vial Sliding Scale -) 1 vial SQ ACHS [facility]; Protocol Last Admin: 03/23/19 06:22 Dose: Not Given Non-Formulary Medication (Topiramate [Topiramate Er]) 150 mg PO DAILY [facility] Non-Formulary Medication (Zolmitriptan [Zomig Zmt]) 5 mg PO PRN [facility] Propranolol HCl (Inderal La -) 60 mg PO DAILY [facility] Last Admin: 03/23/19 10:20 Dose: 60 mg Valsartan (Diovan -) 160 mg PO DAILY [facility] Last Admin: 03/23/19 10:19 Dose: 160 mg - Objective Vital Signs: Vital Signs Temperature 98.2 F 03/23/19 10:37 Pulse Rate 84 03/23/19 10:37 Respiratory Rate 20 03/23/19 10:37 Blood Pressure 145/66 03/23/19 10:37 O2 Sat by Pulse Oximetry (%) 97 03/22/19 21:00 Constitutional: Yes: No Distress Eyes: Yes: Conjunctiva Clear Cardiovascular: Yes: Regular Rate and Rhythm, S1, S2 Respiratory: Yes: CTA Bilaterally Gastrointestinal: Yes: Normal Bowel Sounds, Soft. No: Tenderness Extremities: Yes: Other (SMALL DRY ULCERS OVER DORSUM OF 2ND TOES BILATERALLY. DECREASED ERYTHEMA) Labs: CBC, BMP 03/23/19 07:15 03/23/19 07:15 Assessment/Plan CELLULITIS, SUPERFICIAL ULCERS OF TOES B/L DIABETES MELLITUS WILL SUBSTITUTE VANCOMYCIN PENDING FINAL C/S LOCAL WOUND CARE
--- NOTE | 2019-03-23 13:43 | PN ---
Physical Exam: SUBJECTIVE: Patient seen and examined this AM. No new complaints. Appearance of wounds remains unchanged from prior. No acute overnight events as per nursing. OBJECTIVE: Vital Signs Period Temp Pulse Resp BP Sys/Pettit Pulse Ox Last 24 Hr 97.9 F-98.2 F 74-85 18-20 124-145/66-78 97 GENERAL: A&Ox3, NAD HEAD: NCAT EYES: PERRL, EOMI ENT: moist mucous membranes. NECK: Supple LUNGS: Clear to auscultation bilaterally, no wheezes, no crackles HEART: Regular rate and rhythm, S1, S2 without murmur ABDOMEN: Obese, Soft, nontender, nondistended, +bowel sounds, no guarding EXTREMITIES: No edema. Stage 1 ulceration over the dorsal aspects of the 2nd digit b/l with overlying scab and surrounding erythema, no active drainage NEUROLOGICAL: Cranial nerves II through XII grossly intact. Gross sensation intact throughout. 5/5 muscle strength throughout SKIN: Warm, dry Laboratory Results - last 24 hr 03/22/19 03/22/19 03/22/19 09:55 17:04 22:21 WBC RBC Hgb Hct MCV MCH MCHC RDW Plt Count MPV Absolute Neuts (auto) Neutrophils % Lymphocytes % Monocytes % Eosinophils % Basophils % Nucleated RBC % Sodium Potassium Chloride Carbon Dioxide Anion Gap BUN Creatinine Creat Clearance w eGFR POC Glucometer 113 112 Random Glucose Calcium Phosphorus Magnesium Total Bilirubin AST ALT Alkaline Phosphatase Total Protein Albumin Urine Color Yellow Urine Appearance Cloudy Urine pH 8.0 Ur Specific [place] 1.012 Urine Protein Negative Urine Glucose (UA) Negative Urine Ketones Negative Urine Blood Negative Urine Nitrite Negative Urine Bilirubin Negative Urine Urobilinogen 0.2 Ur Leukocyte Esterase Negative 03/23/19 03/23/19 03/23/19 06:20 07:15 07:15 WBC 5.5 RBC 5.44 Hgb 15.5 Hct 46.1 MCV 84.8 MCH 28.4 MCHC 33.5 RDW 14.7 Plt Count 160 MPV 7.9 Absolute Neuts (auto) 3.6 Neutrophils % 65.5 Lymphocytes % 26.8 Monocytes % 6.4 Eosinophils % 1.0 Basophils % 0.3 Nucleated RBC % 0 Sodium 138 Potassium 4.4 Chloride 108 H Carbon Dioxide 22 Anion Gap 8 BUN 18 Creatinine 1.0 Creat Clearance w eGFR 78.47 POC Glucometer 97 Random Glucose 100 Calcium 8.7 Phosphorus 3.3 Magnesium 2.2 Total Bilirubin 0.5 AST 8 L ALT 15 Alkaline Phosphatase 66 Total Protein 7.2 Albumin 3.5 Urine Color Urine Appearance Urine pH Ur Specific [place] Urine Protein Urine Glucose (UA) Urine Ketones Urine Blood Urine Nitrite Urine Bilirubin Urine Urobilinogen Ur Leukocyte Esterase Active Medications Amlodipine Besylate (Norvasc -) 5 mg PO DAILY [facility] Last Admin: 03/23/19 10:22 Dose: 5 mg Bupropion HCl (Wellbutrin Xl -) 150 mg PO DAILY [facility] Last Admin: 03/23/19 10:19 Dose: 150 mg Heparin Sodium (Porcine) (Heparin -) 5,000 unit SQ TID [facility] Last Admin: 03/23/19 06:30 Dose: 5,000 unit Vancomycin HCl 1,250 mg/ (Dextrose) 250 mls @ 166.667 mls/hr IVPB Q12H [facility]; Protocol Insulin Aspart (Novolog Vial Sliding Scale -) 1 vial SQ ACHS [facility]; Protocol Last Admin: 03/23/19 06:22 Dose: Not Given Non-Formulary Medication (Topiramate [Topiramate Er]) 150 mg PO DAILY [facility] Non-Formulary Medication (Zolmitriptan [Zomig Zmt]) 5 mg PO PRN [facility] Propranolol HCl (Inderal La -) 60 mg PO DAILY [facility] Last Admin: 03/23/19 10:20 Dose: 60 mg Valsartan (Diovan -) 160 mg PO DAILY [facility] Last Admin: 03/23/19 10:19 Dose: 160 mg IMAGING: -CXR: 2 views of the chest have been submitted. There is an elevated right hemidiaphragm with minimal aeration and some questionable atelectasis at the medial right base. There is a normal mediastinum, sharp costophrenic angles and intact bones and soft tissues. -Left Foot XRay: 3 views of the left foot have been submitted. There is calcaneal spurring, bunion formation by the first MTP joint, arthritic changes in the other toes but no sign of fracture or subluxation no sign of blastic or lytic changes. -Right Foot XRay: Right foot reveal similar findings to the left. There is no sign of fracture or subluxation and no sign of blastic or lytic changes. There is bunion formation by the first MTP joint and other arthritic changes in the toes. A destructive process involving the second toe is not seen. -EKG: NSR, LVH, Possible LAE, VR 87, QTc 425 ASSESSMENT/PLAN: 53 y/o M with PMHx NIDDM, HTN, Migraines is admitted for tx of b/l diabetic foot ulcers. #Stage 1, 2nd digit superficial diabetic foot ulcers -Remains without fever or leukocytosis; Low suspicion for Osteo given ESR and CRP WNL -Continue Vancomycin 1250 mg Daily (ABx course started on 03/21) -Follow Cultures -ID (Dr. Romero) Consulted, Appreciate Rec's -Podiatry (Dr. Alcazar) consulted, Appreciate rec's -Vascular surgery (Dr. Wayne) consulted -Local wound care, Post op shoe b/l #NIDDM -A1c 8.0% -ISS, BGM ACHS #HTN, controlled -Continue Propranolol 60mg PO Daily, Valsartan 160mg PO Daily, Amlodipine 5mg PO Daily #Migraines -Continue Topiramate Er 150mg PO Daily, Propranolol #FEN -No standing fluids -Monitor Lytes -Sodium controlled, Diabetic diet #PPx -DVT: Heparin TID Visit type - Emergency Visit Emergency Visit: Yes ED Registration Date: 03/22/19 Care time: The patient presented to the Emergency Department on the above date and was hospitalized for further evaluation of their emergent condition. - New Patient This patient is new to me today: No - Critical Care Critical Care patient: No - Discharge Referral Referred to [facility] No
[2019-03-23] MEDS: VANCOMYCIN 1,250 MG in DEXTROSE 5%-WATER - 250 ML IVPB SCH (14:13)
--- NOTE | 2019-03-23 16:41 | PN ---
Teaching Attending Note Name of Resident: Claudia Villar ATTENDING PHYSICIAN STATEMENT I saw and evaluated the patient. I reviewed the resident's note and discussed the case with the resident. I agree with the resident's findings and plan as documented. 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 CBC, BMP 03/23/19 07:15 03/23/19 07:15 Home Medication List Medication Instructions Recorded Confirmed Type Amlodipine Besylate/Valsartan 1 each PO DAILY 03/21/19 03/21/19 History [Amlodipine-Valsartan 5-160 mg] Bupropion HCl [Bupropion Xl] 150 mg PO DAILY 03/21/19 03/21/19 History Empagliflozin [Jardiance] 10 mg PO DAILY 03/21/19 03/21/19 History Insulin Degludec [Tresiba] 100 unit SQ DAILY 03/21/19 03/21/19 History Propranolol HCl [Propranolol HCl 60 mg PO DAILY 03/21/19 03/21/19 History ER] Sitagliptin Phos/Metformin HCl 1 each PO BID 03/21/19 03/21/19 History [Janumet 50-1,000 mg Tablet] Topiramate [Topiramate ER] 150 mg PO DAILY 03/21/19 03/21/19 History Zolmitriptan [Zomig Zmt] 5 mg PO PRN 03/21/19 03/21/19 History Active Medications Active Medications Amlodipine Besylate (Norvasc -) 5 mg PO DAILY [facility] Last Admin: 03/23/19 10:22 Dose: 5 mg Bupropion HCl (Wellbutrin Xl -) 150 mg PO DAILY [facility] Last Admin: 03/23/19 10:19 Dose: 150 mg Heparin Sodium (Porcine) (Heparin -) 5,000 unit SQ TID [facility] Last Admin: 03/23/19 06:30 Dose: 5,000 unit Vancomycin HCl 1,250 mg/ (Dextrose) 250 mls @ 166.667 mls/hr IVPB Q12H [facility]; Protocol Last Admin: 03/23/19 14:13 Dose: 166.667 mls/hr Insulin Aspart (Novolog Vial Sliding Scale -) 1 vial SQ ACHS [facility]; Protocol Last Admin: 03/23/19 14:13 Dose: Not Given Non-Formulary Medication (Topiramate [Topiramate Er]) 150 mg PO DAILY [facility] Non-Formulary Medication (Zolmitriptan [Zomig Zmt]) 5 mg PO PRN [facility] Propranolol HCl (Inderal La -) 60 mg PO DAILY [facility] Last Admin: 03/23/19 10:20 Dose: 60 mg Valsartan (Diovan -) 160 mg PO DAILY [facility] Last Admin: 03/23/19 10:19 Dose: 160 mg ASSESSMENT AND PLAN:53 year old man with a history of type 2 DM, HTN, migraines who presented to the ED with painful ulcers and redness of both 2nd toes. Problem List - Problems (1) Cellulitis Assessment/Plan: B/L lE purulent Cellulitis grew Staph on Vancomycin sensitivity is pending F/U ID recommondations Code(s): L03.90 - CELLULITIS, UNSPECIFIED Qualifiers: Site of cellulitis: extremity Site of cellulitis of extremity: toe Laterality: unspecified laterality Qualified Code(s): L03.039 - Cellulitis of unspecified toe (2) HTN (hypertension) Assessment/Plan: cont current meds BP is well controlled Code(s): I10 - ESSENTIAL (PRIMARY) HYPERTENSION (3) T2DM (type 2 diabetes mellitus) Assessment/Plan: Cont current regimen optimize Glycemic control. Code(s): E11.9 - TYPE 2 DIABETES MELLITUS WITHOUT COMPLICATIONS
[2019-03-24] MEDS ORDERED: PT OWN MED DRAWER 7, Y5N ONE (01:25)
[2019-03-24] MEDS: VANCOMYCIN 1,250 MG in DEXTROSE 5%-WATER - 250 ML IVPB SCH ×2 (01:31→12:11)
[2019-03-24] MEDS: HEPARIN NA (PORCINE) 5,000 UNITS/ML 1ML VIAL SQ SCH ×3 (06:03→21:41)
[2019-03-24] MEDS: INSULIN SLIDING SCALE (NOVOLOG) 1 VIAL SQ SCH ×4 (06:05→21:41)
--- NOTE | 2019-03-24 07:19 | DS ---
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 Labs: Discharge Summary Reason For Visit: ULCER OF FOOT, CELLULITIS, NON-INSULIN DEPENDENT Current Active Problems Cellulitis (Acute) Foot ulcer (Acute) HTN (hypertension) (Acute) T2DM (type 2 diabetes mellitus) (Acute) Condition: Stable - Instructions - Home Medications Comprehensive Discharge Medication List: Ambulatory Orders Amlodipine Besylate/Valsartan [Amlodipine-Valsartan 5-160 mg] 1 each PO DAILY Bupropion HCl [Bupropion Xl] 150 mg PO DAILY 03/21/19 Empagliflozin [Jardiance] 10 mg PO DAILY 03/21/19 Insulin Degludec [Tresiba] 100 unit SQ DAILY 03/21/19 Propranolol HCl [Propranolol HCl ER] 60 mg PO DAILY 03/21/19 Sitagliptin Phos/Metformin HCl [Janumet 50-1,000 mg Tablet] 1 each PO BID Topiramate [Topiramate ER] 150 mg PO DAILY 03/21/19 Zolmitriptan [Zomig Zmt] 5 mg PO PRN 03/21/19
--- NOTE | 2019-03-24 08:44 | PN ---
Progress Note (short form) - Note Progress Note: fuv b/l 2nd toes. vss, tmax 98.4 wounds continue to remain unchanged left greater than right, wbc=5.5, cellulitis b/l unresponsive to current therapy grade 1-2 wounds b/l 2nd toes cellulitis Medicine recommending to send home with po bactrim. Patient may follow up in office and or wound care. MRI ordered on left 2nd toe. If MRI negative left agree to DC. Post op shoe b/l. Betadine dressing changes in place. Betadine dressing change to both 2nd toe wounds.
[2019-03-24] MEDS: amLODIPine BESYLATE 5 MG TABLET (FP) PO SCH (09:11)
[2019-03-24] MEDS: VALSARTAN 160 MG TABLET (UD) PO SCH (09:12)
--- NOTE | 2019-03-24 12:58 | PN ---
Progress Note (short form) - Note Progress Note: patient reports some improvement of the toes awaiting MRI on vancomycin reviewed chart and history with the patient Vital Signs Period Temp Pulse Resp BP Sys/Pettit Pulse Ox Last 24 Hr 97.7 F-98.8 F 69-83 19-21 115-141/72-84 98 cor-rrr lungs clear abd soft,nt second toe both feet with erythema, dry ulcer CBC, BMP 03/23/19 07:15 03/23/19 07:15 Laboratory Tests 03/22/19 03/22/19 07:10 07:10 ESR 4 C-Reactive Protein < 0.3 Microbiology 03/21/19 21:23 Toe - Left Second Gram Stain - Final 03/21/19 21:23 Toe - Left Second Wound Culture - Preliminary Staphylococcus Aureus Staphylococcus Coagulase Neg 03/21/19 21:23 Blood - Peripheral Venous Blood Culture - Preliminary NO GROWTH OBTAINED AFTER 48 HOURS, INCUBATION TO CONTINUE FOR 3 DAYS. 03/21/19 21:23 Blood - Peripheral Venous Blood Culture - Preliminary NO GROWTH OBTAINED AFTER 48 HOURS, INCUBATION TO CONTINUE FOR 3 DAYS. 03/22/19 14:00 Nares - Mrsa Screen - Right MRSA Screen - Final NO MRSA ISOLATED meds reviewed a/p MSSA positive wound culture- awaiting MRI, resume cefazolin inflammatory markers normal htn niddm
--- NOTE | 2019-03-24 17:01 | PN ---
Progress Note, Physician Chief Complaint: asymptomatic - Current Medication List Current Medications: Active Medications Amlodipine Besylate (Norvasc -) 5 mg PO DAILY [facility] Last Admin: 03/24/19 09:11 Dose: 5 mg Bupropion HCl (Wellbutrin Xl -) 150 mg PO DAILY [facility] Last Admin: 03/24/19 09:12 Dose: 150 mg Heparin Sodium (Porcine) (Heparin -) 5,000 unit SQ TID [facility] Last Admin: 03/24/19 14:10 Dose: 5,000 unit Cefazolin Sodium/Dextrose (Ancef 2 Gm Premixed Ivpb -) 2 gm in 50 mls @ 100 mls /hr IVPB Q8H-IV ADRIEL Insulin Aspart (Novolog Vial Sliding Scale -) 1 vial SQ ACHS [facility]; Protocol Last Admin: 03/24/19 11:43 Dose: 2 syringe Non-Formulary Medication (Topiramate [Topiramate Er]) 150 mg PO DAILY [facility] Non-Formulary Medication (Zolmitriptan [Zomig Zmt]) 5 mg PO PRN [facility] Propranolol HCl (Inderal La -) 60 mg PO DAILY [facility] Last Admin: 03/24/19 09:12 Dose: 60 mg Valsartan (Diovan -) 160 mg PO DAILY [facility] Last Admin: 03/24/19 09:12 Dose: 160 mg - Objective Vital Signs: Vital Signs Temperature 98.4 F 03/24/19 06:00 Pulse Rate 83 03/24/19 06:00 Respiratory Rate 19 03/24/19 06:00 Blood Pressure 129/72 03/24/19 06:00 O2 Sat by Pulse Oximetry (%) 98 03/23/19 21:00 Young man not in distress HEENT: mm moist, no anemia, PERRLA, EOMI NECK: No JVd No Bruit CHEST: CTA: B/l CVS: s1S2 R ABD: Non tender Bs + EXT: purulent Cellulitis on dorsum of 2nd toes 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 03/21/19 21:23 Blood - Peripheral Venous Blood Culture - Preliminary NO GROWTH OBTAINED AFTER 48 HOURS, INCUBATION TO CONTINUE FOR 3 DAYS. Problem List - Problems (1) Cellulitis Assessment/Plan: B/L lE purulent Cellulitis grew Staph and Strept gallo-sensitive, pansensitive switched to all abx cont Cefazolin if MRI -ve will Dc home on PO abx. Code(s): L03.90 - CELLULITIS, UNSPECIFIED Qualifiers: Site of cellulitis: extremity Site of cellulitis of extremity: toe Laterality: unspecified laterality Qualified Code(s): L03.039 - Cellulitis of unspecified toe (2) HTN (hypertension) Assessment/Plan: cont current meds BP is well controlled Code(s): I10 - ESSENTIAL (PRIMARY) HYPERTENSION (3) T2DM (type 2 diabetes mellitus) Assessment/Plan: Cont current regimen optimize Glycemic control. Code(s): E11.9 - TYPE 2 DIABETES MELLITUS WITHOUT COMPLICATIONS (4) Anxiety Assessment/Plan: Cont home meds Code(s): F41.9 - ANXIETY DISORDER, UNSPECIFIED
[2019-03-24] MEDS: CEFAZOLIN 2 GM/D5W 2 GM/50 ML ML IVPB SCH (17:43)
[2019-03-24] MEDS ORDERED: INSULIN (NOVOLOG) ASPART 100 UNITS/ML 10ML VIAL ONE (21:29)
[2019-03-25] MEDS: CEFAZOLIN 2 GM/D5W 2 GM/50 ML ML IVPB SCH ×2 (01:10→10:39)
[2019-03-25 05:25] VITALS: PULSE 78
[2019-03-25] MEDS: INSULIN SLIDING SCALE (NOVOLOG) 1 VIAL SQ SCH ×2 (06:44→11:30)
[2019-03-25] MEDS: HEPARIN NA (PORCINE) 5,000 UNITS/ML 1ML VIAL SQ SCH ×2 (06:45→13:22)
[2019-03-25 08:28] VITALS: BP 130/70; TEMP 98.2
--- NOTE | 2019-03-25 08:29 | PN ---
Teaching Attending Note Name of Resident: Hollie Rutherford ATTENDING PHYSICIAN STATEMENT I saw and evaluated the patient. I reviewed the resident's note and discussed the case with the resident. I agree with the resident's findings and plan as documented. 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 Active Medications Amlodipine Besylate (Norvasc -) 5 mg PO DAILY [facility] Last Admin: 03/24/19 09:11 Dose: 5 mg Bupropion HCl (Wellbutrin Xl -) 150 mg PO DAILY [facility] Last Admin: 03/24/19 09:12 Dose: 150 mg Heparin Sodium (Porcine) (Heparin -) 5,000 unit SQ TID [facility] Last Admin: 03/25/19 06:45 Dose: 5,000 unit Cefazolin Sodium/Dextrose (Ancef 2 Gm Premixed Ivpb -) 2 gm in 50 mls @ 100 mls /hr IVPB Q8H-IV [facility] Last Admin: 03/25/19 01:10 Dose: 100 mls/hr Insulin Aspart (Novolog Vial Sliding Scale -) 1 vial SQ ACHS [facility]; Protocol Last Admin: 03/25/19 06:44 Dose: Not Given Non-Formulary Medication (Topiramate [Topiramate Er]) 150 mg PO DAILY [facility] Non-Formulary Medication (Zolmitriptan [Zomig Zmt]) 5 mg PO PRN [facility] Propranolol HCl (Inderal La -) 60 mg PO DAILY [facility] Last Admin: 03/24/19 09:12 Dose: 60 mg Valsartan (Diovan -) 160 mg PO DAILY [facility] Last Admin: 03/24/19 09:12 Dose: 160 mg ASSESSMENT AND PLAN:53 year old man with a history of type 2 DM, HTN, migraines who presented to the ED with painful ulcers and redness of both 2nd toes. Problem List - Problems (1) Cellulitis Assessment/Plan: B/L lE purulent Cellulitis grew Staph and Strept gallo-sensitive, pansensitive , MRI -ve will switch to PO Cephalexine and F/U with Podiatry. Code(s): L03.90 - CELLULITIS, UNSPECIFIED Qualifiers: Site of cellulitis: extremity Site of cellulitis of extremity: toe Laterality: unspecified laterality Qualified Code(s): L03.039 - Cellulitis of unspecified toe (2) HTN (hypertension) Assessment/Plan: cont current meds BP is well controlled Code(s): I10 - ESSENTIAL (PRIMARY) HYPERTENSION (3) T2DM (type 2 diabetes mellitus) Assessment/Plan: Cont current regimen optimize Glycemic control. Code(s): E11.9 - TYPE 2 DIABETES MELLITUS WITHOUT COMPLICATIONS (4) Anxiety Assessment/Plan: Cont home meds Code(s): F41.9 - ANXIETY DISORDER, UNSPECIFIED
[2019-03-25] MEDS ORDERED: PT OWN MED DRAWER 7, Y5N ONE (10:21)
--- NOTE | 2019-03-25 10:21 | PN ---
Progress Note (short form) - Note Progress Note: fuv b/l 2nd toes. vss, tmax 98.2 wounds improving left greater than right, wbc=5.5, MRI negative for om grade 1-2 wounds b/l 2nd toes cellulitis improving DC to home with abx as per ID. Patient may follow up in office and or wound care. Post op shoe b/l. Betadine dressing changes in place. Betadine dressing change to both 2nd toe wounds. Will follow till dc.
[2019-03-25] MEDS: VALSARTAN 160 MG TABLET (UD) PO SCH (10:39)
[2019-03-25] MEDS: amLODIPine BESYLATE 5 MG TABLET (FP) PO SCH (10:40)
[2019-03-25] MEDS ORDERED: INSULIN (NOVOLOG) ASPART 100 UNITS/ML 10ML VIAL ONE (11:27)
--- NOTE | 2019-03-25 12:30 | PN ---
Progress Note (short form) - Note Progress Note: no complaints MRI negative for osteo Vital Signs Period Temp Pulse Resp BP Sys/Pettit Pulse Ox Last 24 Hr 97.7 F-98.3 F 72-78 18-19 100-140/62-86 97-97 bilateral second toes with dry superficial ulcers with minimal erythema CBC, BMP 03/23/19 07:15 03/23/19 07:15 Microbiology 03/21/19 21:23 Toe - Left Second Gram Stain - Final 03/21/19 21:23 Toe - Left Second Wound Culture - Final Staphylococcus Aureus Staphylococcus Coagulase Neg 03/21/19 21:23 Blood - Peripheral Venous Blood Culture - Preliminary NO GROWTH OBTAINED AFTER 72 HOURS, INCUBATION TO CONTINUE FOR 2 DAYS. 03/21/19 21:23 Blood - Peripheral Venous Blood Culture - Preliminary NO GROWTH OBTAINED AFTER 72 HOURS, INCUBATION TO CONTINUE FOR 2 DAYS. 03/22/19 14:00 Nares - Mrsa Screen - Right MRSA Screen - Final NO MRSA ISOLATED a/p MSSA positive wound culture- switch to keflex for one week local care per podiatry
--- NOTE | 2019-03-25 14:12 | DS ---
Physical Exam: SUBJECTIVE: Patient seen and examined. No acute events overnight. Patient offers no new complaints. OBJECTIVE: Vital Signs Period Temp Pulse Resp BP Sys/Pettit Pulse Ox Last 24 Hr 97.7 F-98.3 F 72-78 18-19 100-140/62-86 97-97 PHYSICAL EXAM GENERAL: The patient is awake, alert, and fully oriented, in no acute distress. HEAD: Normal with no signs of trauma. EYES: PERRL, extraocular movements intact, sclera anicteric, conjunctiva clear. ENT: moist mucous membranes. NECK: Supple LUNGS: Clear to auscultation bilaterally, no wheezes, no crackles HEART: Regular rate and rhythm, S1, S2 without murmur ABDOMEN: Obese, Soft, nontender, nondistended, +bowel sounds, no guarding EXTREMITIES: No edema. Stage 1 ulceration over the dorsal aspects of the 2nd digit b/l with overlying scab and surrounding erythema, no active drainage. Improvement. NEUROLOGICAL: Cranial nerves II through XII grossly intact. Gross sensation intact throughout. 5/5 muscle strength throughout SKIN: Warm, dry LABS Laboratory Results - last 24 hr 03/24/19 03/24/19 03/25/19 17:41 21:38 06:43 POC Glucometer 149 168 133 03/25/19 11:25 POC Glucometer 176 IMAGING: -CXR: 2 views of the chest have been submitted. There is an elevated right hemidiaphragm with minimal aeration and some questionable atelectasis at the medial right base. There is a normal mediastinum, sharp costophrenic angles and intact bones and soft tissues. -Left Foot XRay: 3 views of the left foot have been submitted. There is calcaneal spurring, bunion formation by the first MTP joint, arthritic changes in the other toes but no sign of fracture or subluxation no sign of blastic or lytic changes. -Right Foot XRay: Right foot reveal similar findings to the left. There is no sign of fracture or subluxation and no sign of blastic or lytic changes. There is bunion formation by the first MTP joint and other arthritic changes in the toes. A destructive process involving the second toe is not seen. -EKG: NSR, LVH, Possible LAE, VR 87, QTc 425 -MRI- no signs of osteo HOSPITAL COURSE: Date of Admission:03/22/19 53 y/o M with PMHx NIDDM, HTN, Migraines is admitted for tx of b/l diabetic foot ulcers. #Stage 1, 2nd digit superficial diabetic foot ulcers -Ulcers were superficial. No signs of OSTEO on MRI. -Was on Vancomycin 1250 mg Daily (ABx course started on 03/21) -Discharged home on 5 more days of Keflex. Bacitracin. -Cultures MSSA -ID (Dr. Romero) Consulted -Podiatry (Dr. Alcazar) consulted -Vascular surgery (Dr. Wayne) consulted -He will follow up with Podiatry and PCP outpatient. #NIDDM -A1c 8.0% -resume home meds on DC #HTN, controlled -Continue Propranolol 60mg PO Daily, Valsartan 160mg PO Daily, Amlodipine 5mg PO Daily #Migraines -Continue Topiramate Er 150mg PO Daily, Propranolol #FEN -No standing fluids -Monitor Lytes -Sodium controlled, Diabetic diet Date of Discharge: 03/25/19 Minutes to complete discharge: 35 Discharge Summary Reason For Visit: ULCER OF FOOT, CELLULITIS, NON-INSULIN DEPENDENT Current Active Problems Anxiety (Acute) Cellulitis (Acute) Foot ulcer (Acute) HTN (hypertension) (Acute) T2DM (type 2 diabetes mellitus) (Acute) Condition: Stable - Instructions Diet, Activity, Other Instructions: You were here because of ulcers on your feet. Testing did NOT reveal an infection in the bone. You were being treated with antibiotics. You will need to continue antibiotics for 5 more days at home. The antibiotic is called Keflex (cephalexan). Take 500mg twice a day for 5 more days. (Complete on 03/31). You will start your first dose tonight. You can apply Bacitracin on the ulcers daily. Follow up with your primary care physician (Dr. Frey) in 1 week. It is important you follow up with your Fence Machine Operator (foot doctor) in 1 week. If you develop any fevers, chills, chest pain, shortness of breath, nausea, vomiting, please call your doctor or go to the nearest emergency room. Disposition: HOME - Home Medications Comprehensive Discharge Medication List: Ambulatory Orders Amlodipine Besylate/Valsartan [Amlodipine-Valsartan 5-160 mg] 1 each PO DAILY Bupropion HCl [Bupropion Xl] 150 mg PO DAILY 03/21/19 Empagliflozin [Jardiance] 10 mg PO DAILY 03/21/19 Insulin Degludec [Tresiba] 100 unit SQ DAILY 03/21/19 Propranolol HCl [Propranolol HCl ER] 60 mg PO DAILY 03/21/19 Sitagliptin Phos/Metformin HCl [Janumet 50-1,000 mg Tablet] 1 each PO BID Topiramate [Topiramate ER] 150 mg PO DAILY 03/21/19 Zolmitriptan [Zomig Zmt] 5 mg PO PRN 03/21/19 Bacitracin - [Bacitracin Topical Ointment -] 1 applic TP TID #1 tube 03/25/19 Cephalexin [Keflex] 500 mg PO BID #11 capsule 03/25/19 This patient is new to me today: Yes Date on this admission: 03/25/19 Emergency Visit: Yes ED Registration Date: 03/22/19 Care time: The patient presented to the Emergency Department on the above date and was hospitalized for further evaluation of their emergent condition. Critical Care patient: No - Discharge Referral Referred to [facility] Med P.C.: No
== END 2019-03-25 15:58 | disposition home or self-care (01) | DRG 638 ==
LOC: JER 18:05 → JERBED 03-22 00:03 → J6S 03-22 03:50
PROVIDERS: ADMIT Internal Medicine; ATTEND Internal Medicine
DX: E11.621 Type 2 diabetes mellitus with foot ulcer (principal); J98.11 Atelectasis; L03.031 Cellulitis of right toe; L03.032 Cellulitis of left toe; L97.519 Non-pressure chronic ulcer of other part of right foot with unspecified severity; L97.529 Non-pressure chronic ulcer of other part of left foot with unspecified severity; B95.61 Methicillin susceptible Staphylococcus aureus infection as the cause of diseases classified elsewhere; Z79.4 Long term (current) use of insulin; I10 Essential (primary) hypertension; G43.909 Migraine, unspecified, not intractable, without status migrainosus; F41.9 Anxiety disorder, unspecified; E66.9 Obesity, unspecified; E86.0 Dehydration; Z68.33 Body mass index [BMI] 33.0-33.9, adult
CPT/HCPCS: 36415; 71046-TC-FY; 73630-TC-LT; 73630-TC-RT-FY; 73718-TC-LT; 80048; 80053; 81003; 82962; 83036; 83735; 84100; 85025; 85651; 86140; 87040; 87070; 87081; 87186; 87205; 93005; 93010; 99283-25; J1644; J7030